=== PATIENT | male | born 1995 | race Caucasian/White ===

== ENCOUNTER → 2023-10-16 | Outpatient (CLI) | payer OTHER | LOC: MHCPAIN 14:39 | DX: M48.02 Spinal stenosis, cervical region (principal); M54.12 Radiculopathy, cervical region | CPT/HCPCS: G0463 ==

== ENCOUNTER → 2023-10-21 | Outpatient (CLI) | payer OTHER ==
[~2023-10-21] MED LIST: Iohexol 300 - 10 ML VIAL ONE; Lidocaine PF 2% (20 MG/ML) 2 ML VIAL ONE
== END ==
LOC: MHCPAIN 08:06
DX: M54.12 Radiculopathy, cervical region (principal)
CPT/HCPCS: J1100; Q9967